=== PATIENT | female | born 1960 | race Caucasian/White ===

== ENCOUNTER 2020-10-30 10:09 | Emergency (ER) | payer BC, OTHER ==
[~2020-10-30] VITALS: Ht 154.9 cm; Wt 70.9 kg
[2020-10-30 10:14] VITALS: BP 136/68
[2020-10-30] MEDS ORDERED: CLIN150C2 PO (13:42)
[2020-10-30] MEDS ORDERED: AMOX-422 PO (13:42)
[2020-10-30] MEDS ORDERED: clindamycin 150mg capsule PO ONE (13:45)
[2020-10-30] MEDS ORDERED: amox tr/potassium clavulanate 875/125mg TAB PO ONE (13:45)
== END 2020-10-30 14:27 | disposition home or self-care (01) ==
LOC: ER 10:10
DX: H00.036 Abscess of eyelid left eye, unspecified eyelid (principal); E11.9 Type 2 diabetes mellitus without complications; Z79.2 Long term (current) use of antibiotics
CPT/HCPCS: 99283